=== PATIENT | male | born 1950 | race Caucasian/White ===

== ENCOUNTER 2021-10-25 11:05 | Observation (INO) | payer OTHER, SELFPAY ==
[2021-10-25] VITALS (37 sets, daily range): BP systolic 114–144; BP diastolic 50–86; PULSE 66–92; RESP 12–30; TEMP 36.1–36.9; O2SAT 97–100; BMI 23.8
--- NOTE | ~2021-10-25 | MR_ITS ---
EXAMINATION: MR brain/brain stem wo con DATE: 10/26/2021 09:58 INDICATION: Altered mental status. TECHNIQUE: Magnetic resonance imaging (MRI) of the brain and brainstem was performed without intraven ous contrast. COMPARISON: Head CT 10/25/2021 FINDINGS: There is a 10 mm lesion of increased T2-weighted signal intensity in the right cerebellar w figueroa matter. There is no acute ischemic infarct or abnormal mass lesion. The ventricles are normal in size. There is mucosal thickening in the paranasal sinuses. The orbits are normal. The mastoid air c ells are normal. IMPRESSION: 1. Lesion in the right cerebellar white matter, most likely mild chronic small vessel ischemic diseas e. Reviewed, dictated and finalized at location A. IMPRESSION: 1. Lesion in the right cerebellar white matter, most likely mild chronic small vessel ischemic disease.
--- NOTE | ~2021-10-25 | XR_ITS ---
EXAMINATION: XR chest 2V DATE: 10/25/2021 12:57 INDICATION: Dizziness, confusion and weakness TECHNIQUE: PA and lateral views of the chest were obtained. COMPARISON: None FINDINGS: The lungs are clear with no focal airspace opacities, pulmonary edema, pleural effusion or pneumothor ax. The cardiomediastinal silhouette is normal. Mild thoracic spondylosis. IMPRESSION: 1. No acute cardiopulmonary disease. Reviewed, dictated and finalized at location A.
--- NOTE | ~2021-10-25 | CT_ITS ---
EXAMINATION: CTA BRAIN/CAROTID DATE: 10/25/2021 12:51 INDICATION: Dizziness, confusion and disorientation TECHNIQUE: Computed tomographic angiography (CTA) of the head and neck was performed with 100 mL Omni paque-350 intravenous contrast. Multiplanar reconstructions and maximum intensity projection 3D-recon structions of the carotid arteries and of the intracranial arteries were created by the technologist on a separate workstation. Precontrast CT of the head was also obtained. Automated exposure control and iterative reconstruction technique were employed.The dose-length product was 1860.79 mGy-cm. COMPARISON: None. FINDINGS: Carotid arteries: There is no evident plaque with 0% stenosis of the right or left carotid bulbs relative to normal dis teodoro artery lumen diameter (NASCET criteria). Mild biapical pleural-parenchymal scarring. Thoracic aor ta is normal in caliber with no dissection. Cervical soft tissues are unremarkable. Severe lower cerv ical spondylosis. Head: No acute intracranial hemorrhage, acute infarction or abnormal extra axial fluid collection. Ventricl es are normal and symmetric. No mass/mass effect. No abnormally enhancing brain lesions. Mucosal thic kening in the bilateral ethmoid and maxillary sinuses. The orbits and mastoid air cells are normal. Intracranial arteries There is no hemodynamically significant stenosis in the vertebral, basilar and internal carotid arter ies. Vertebral arteries are codominant. There are no aneurysms identified. Both A1 and P1 segments a re patent. Also appear to be patent bilateral posterior communicating arteries. Cerebral arterial arb orization appears symmetric. IMPRESSION: 1. 0% stenosis of the left and right carotid bulbs relative to normal distal artery lumen diameter (N ASCET criteria). 2. No acute intracranial process. Unremarkable cerebral CT angiogram. Reviewed, dictated and finalized at location A. IMPRESSION: 1. 0% stenosis of the left and right carotid bulbs relative to normal distal ar kwame lumen diameter (NASCET criteria). 2. No acute intracranial process. Unremarkable cerebral CT angiogram.
--- NOTE | 2021-10-25 11:14 | ECG_ITS ---
Measurements Intervals [place] Rate: 70 P: 60 MO: 166 QRS: -36 QRSD: 90 T: 35 QT: 379 QTc: 410 Interpretive Statements SINUS RHYTHM MARKED LEFT AXIS DEVIATION [QRS AXIS < -30] NO PREVIOUS ECG AVAILABLE FOR COMPARISON Electronically Signed On 10-26-2021 16:03:59 CDT by Andres Lang M.D.
[2021-10-25 11:27] LABS: Basophils Percent Auto 0.2 % (0.2-1.2); Eosinophils Absolute Auto 0.1 K/mm3 (0-0.3); Eosinophils Percent Auto 1.7 % (0-4.4); Hematocrit 40.4 % (42.0-52.0); Hemoglobin 13.3 g/dL (14.0-18.0); Immature Granulocyte Absolute 0.02 K/mm3 (0.00-0.031); Immature Granulocyte Percent A 0.2 % (0-0.5); Lymphocytes Absolute Auto 1.51 K/mm3 (0.9-3.2); Lymphocytes Percent Auto 18.6 % (18.3-44.2); Mean Corpuscular HGB Conc 32.9 g/dl (32-36); Mean Corpuscular Volume 97.3 fl (80-100); Mean Platelet Volume 9.7 fl (7.4-10.4); Monocytes Absolute Auto 0.9 K/mm3 (0.1-0.6); Monocytes Percent Auto 10.8 % (2.6-8.5); Neutrophils Absolute Auto 5.6 K/mm3 (1.3-6.7); Neutrophils Percent Auto 68.5 % (45.5-73.1); Platelet Count Result 207 k/mm3 (150-375); Red Blood Count 4.15 M/mm3 (4.6-6.20); Red Cell Distribution Width 14.3 % (11.5-14.5); White Blood Count 8.1 K/mm3 (4.5-10.0)
[2021-10-25 11:37] LABS: Partial Thromboplastin Time 26.3 SECONDS (22.3-36.8); Prothrombin Time 12.7 Seconds (11.1-14.7)
--- NOTE | 2021-10-25 11:55 | ED.DIZZY ---
HPI - Dizziness General Chief Complaint: Dizziness <Nasreen Thomas PA-C - Last Filed: 10/25/21 18:59> Stated Complaint: dizzy since yesterday <Nasreen Thomas PA-C - Last Filed: 10/25/21 18:59> Time Seen by Provider: 10/25/21 11:53 <Nasreen Thomas PA-C - Last Filed: 10/25/21 18:59> Source: patient <Nasreen Thomas PA-C - Last Filed: 10/25/21 18:59> Mode of arrival: ambulatory <YAO Carey Last Filed: 10/25/21 18:59> Limitations: no limitations <Nasreen Thomas PA-C - Last Filed: 10/25/21 18:59> History of Present Illness HPI Narrative: Patient is a 70-year-old male who presents the ED with report of dizziness. Patient reports he developed dizziness yesterday, which he describes as feeling lightheaded and off-balance. Denies any aggravating or relieving factors to his dizziness. He denies any room spinning sensation. He worked out yesterday and did feel dizzy at that time but was able to finish his work-out. He then drove [place] with his family but did report feeling dizzy. at bedside states he seems disoriented at times and has been saying confused things, like thinking it was Easter Tuesday today. He has also needed to hold onto her while walking as he feels off balance, which is new for him. Patient states he just feels out of it and extremely fatigued. He also reports having a new tremor of his BUE, though states he has had a tremor for a while. States he has been eating and drinking well at home. He denies any headache, dysphagia, dysarthria, or feeling confused himself. He has had recent visual changes including depth perception issues. 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 He saw his eye doctor last week and is scheduled to have a follow-up testing on of this week. Patient denies any syncope, chest pain, shortness of breath, nausea, vomiting, abdominal pain, fever, chills, urinary symptoms. <Nasreen Thomas PA-C - Last Filed: 10/25/21 18:59> Related Data Home Medications: Home Medications Medication Instructions Recorded Confirmed esomeprazole magnesium [Nexium] 20 mg PO DAILY 10/25/21 10/25/21 <Nasreen Thomas PA-C - Last Filed: 10/25/21 18:59> Allergies/Adverse Reactions: Allergies Allergy/AdvReac Type Severity Reaction Status Date / Time No Known Allergies Allergy Verified 10/25/21 18:19 <Nasreen Thomas PA-C - Last Filed: 10/25/21 18:59> Review of Systems Review of Systems: CONSTITUTIONAL: Reports fatigue. Denies fever, chills, or sweats. EYES: Reports blurry vision/depth perception issues/difficulty focusing. Denies redness or discharge. ENT: Denies dysphagia, rhinorrhea, congestion. CARDIOVASCULAR: Denies chest pain. RESPIRATORY: Denies dyspnea. GASTROINTESTINAL: Denies abdominal pain, nausea, vomiting, or diarrhea. GENITOURINARY: Denies dysuria or hematuria. MUSCULOSKELETAL: Denies back pain. NEUROLOGIC: Reports tremor, dizziness/lightheadedness, tremor, disorientation. Denies syncope, headache, numbness, tingling, dysarthria, or focal weakness. <Nasreen Thomas PA-C - Last Filed: 10/25/21 18:59> All systems reviewed & are unremarkable except as noted in HPI and below <Nasreen Thomas PA-C - Last Filed: 10/25/21 18:59> [facility] Past Medical History Medical History: Medical History (Updated 10/25/21 @ 18:54 by Nasreen Thomas PA-C) GERD (gastroesophageal reflux disease) <Nasreen Thomas PA-C - Last Filed: 10/25/21 18:59> Surgical History Surgical History: Surgical History (Updated 10/25/21 @ 18:47 by Nasreen Thomas PA-C) History of surgery on lower extremity <Nasreen Thomas PA-C - Last Filed: 10/25/21 18:59> Family History Family History: Family History (Updated 10/25/21 @ 18:23 by Isacc Marroquin RN) Father Alzheimer disease <Nasreen Thomas PA-C - Last Filed: 10/25/21 18:59> Social History Social History:
[2021-10-25 12:11] LABS: Alanine Aminotransferase 22 U/L (4-50); Alkaline Phosphatase 70 U/L (38-126); Anion Gap 3 mmol/L (8-16); Aspartate Amino Transferase 30 U/L (17-59); Bilirubin,Total 1.3 mg/dL (0.2-1.3); Blood Urea Nitrogen 14 mg/dL (9-20); Calcium 8.5 mg/dL (8.4-10.2); Carbon Dioxide 28 mmol/L (22-30); Chloride 106 mmol/L (98-107); Estimated CRCL calculation 69 ml/min; Estimated Glomerular Filt Rate > 60; Glucose 110 mg/dL (65-110); Potassium 4.1 mmol/L (3.4-5.0); Sodium 137 mmol/L (137-145)
[2021-10-25 12:43] LABS: Add Urine Microscopic? NO; Appearance Urine Clear (Clear); Bilirubin Urine Negative (Negative); Blood Urine Negative (Negative); Color Urine Straw (Yellow); Glucose Urine UA Negative (Negative); Ketones Urine Negative (Negative); Leukocyte Esterase Ur Negative LEU/UL (Negative); Nitrate Urine Negative (Negative); Protein Urine Negative (Negative); Specific Grav Ur 1.012 (1.001-1.035); Urobilinogen Urine Negative mg/dL (<2.0)
[2021-10-25] MEDS: MECLIZINE HCL 25 MG TABLET PO (13:08)
[2021-10-25] MEDS: SODIUM CHLORIDE 0.9% IV 1,000 ML 999 ML IV CONT (14:40)
--- NOTE | 2021-10-25 14:41 | PC.NURSE ---
food tray ordered
[2021-10-25 15:11] LABS: NT Pro B Type Natriuretic Pept 199 pg/mL (5-100); Troponin I < 0.012 ng/mL (0.000-0.034)
[2021-10-25 16:42] LABS: Amphetamine Screen Urine Negative (Negative); Barbiturate Screen Urine Negative (Negative); Benzodiazepines Screen Urine Negative (Negative); Cannabinoid Screen Urine Negative (Negative); Cocaine Screen Urine Negative (Negative); Methadone Screen Urine Negative (Negative); Opiate Screen Urine Negative (Negative); Phencyclidine Screen Urine Negative (Negative)
--- NOTE | 2021-10-25 17:23 | PM.IMHP ---
H&P: HPI History of Present Illness Date/Time: Patient was placed observation status for expected length of stay less than 23 hours for management, will plan to re-evaluate tomorrow for improvement. 10/25/21 17:23 Chief Complaint: Blurred vision Narrative: Mr. Phan is a 70-year-old gentleman who presented emergency room with complaints of blurring of his vision and fatigued over the last 1-2 weeks. Initially patient had told the emergency room provider that he was dizzy, but now he states he does not feel dizzy he feels more like he has having blurring of vision. 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 Patient states he was in 12 his retinas were within normal limits that he would need to be evaluated for cataracts. Patient states he has also been extremely fatigued and feeling off balanced. Patient states that he has had a hole into things and walking at times. Patient states that he will be doing doing daily activities around his house and will just fall asleep. Patient has a known history of snoring and states that he has had different devices to try to stop him from snoring, but they have not worked. Patient denies talking to his primary care provider about any of these issues and states he has never been worked up for sleep apnea. Patient denies any chest pain, shortness a breath, syncope, or near syncopal episodes. Patient's spouse is at bedside states that patient has been very forgetful recently and not acting himself. Patient's spouse states that he she has also noted that he has new tremors to bilateral upper extremities that have developed over the last few weeks. Patient states his only real medical history is gastroesophageal reflux disease. Review of Systems Review of Systems: A 12 point review of systems was completed patient all pertinent positive and negative per HPI the remainder are unremarkable. [facility] Past Medical History Medical History (Updated 10/25/21 @ 17:31 by Angelia Wiggins APRN) GERD (gastroesophageal reflux disease) Social History Social History (Updated 10/25/21 @ 17:29 by Angelia Wiggins APRN) Smoking status: Never smoker Meds Home Medications and Allergies Home Medications Medication Instructions Recorded Confirmed Type esomeprazole magnesium [Nexium] 20 mg PO DAILY 10/25/21 History Allergies Allergy/AdvReac Type Severity Reaction Status Date / Time No Known Allergies Allergy Verified 10/25/21 11:12 Vital Signs Vital Signs - 24 hr 10/25/21 11:09 10/25/21 11:12 10/25/21 11:30 Temperature 36.1 C L Pulse Rate 77 67 77 Respiratory Rate 16 18 17 Blood Pressure 142/75 H Pulse Oximetry 99 98 100 10/25/21 11:31 10/25/21 12:11 10/25/21 12:20 Temperature Pulse Rate 77 85 82 Respiratory Rate 24 H 21 H 21 H Blood Pressure 138/80 Pulse Oximetry 100 100 10/25/21 12:30 10/25/21 12:31 10/25/21 12:54 Temperature Pulse Rate 79 78 86 Respiratory Rate 19 20 Blood Pressure 130/56 L Pulse Oximetry 97 10/25/21 12:56 10/25/21 13:00 10/25/21 13:01 Temperature Pulse Rate 83 77 90 Respiratory Rate 18 17 24 H Blood Pressure 135/79 144/76 H Pulse Oximetry 99 99 98 10/25/21 13:02 10/25/21 13:18 10/25/21 13:30 Temperature Pulse Rate 77 82 Respiratory Rate 12 18 20 Blood Pressure Pulse Oximetry 97 98 10/25/21 13:31 10/25/21 13:49 10/25/21 14:05 Temperature Pulse Rate 76 66 87 Respiratory Rate 23 H 14 20 Blood Pressure 131/58 L Pulse Oximetry 98 10/25/21 14:15 10/25/21 14:16 10/25/21 14:30 Temperature Pulse Rate 78 77 82 Respiratory Rate 21 H 19 18 Blood Pressure 120/69 135/86 Pulse Oximetry 10/25/21 14:32 10/25/21 14:45 10/25/21 14:46 Temperature Pulse Rate 81 81 85 Respiratory Rate 21 H 20 26 H Blood Pr
[2021-10-26] VITALS: PULSE 69
[2021-10-26 04:00] VITALS: PULSE 72
[2021-10-26 06:00] VITALS: BP 121/64; PULSE 61; RESP 16; TEMP 36.6; O2SAT 99
[2021-10-26 06:00] LABS: Basophils Percent Auto 0.4 % (0.2-1.2); Eosinophils Absolute Auto 0.2 K/mm3 (0-0.3); Hematocrit 37.7 % (42.0-52.0); Hemoglobin 12.8 g/dL (14.0-18.0); Immature Granulocyte Absolute 0.02 K/mm3 (0.00-0.031); Immature Granulocyte Percent A 0.3 % (0-0.5); Lymphocytes Absolute Auto 1.61 K/mm3 (0.9-3.2); Lymphocytes Percent Auto 22.8 % (18.3-44.2); Mean Corpuscular Hemoglobin 32.4 pg (26-34); Mean Corpuscular Volume 95.4 fl (80-100); Monocytes Percent Auto 13.6 % (2.6-8.5); Neutrophils Absolute Auto 4.2 K/mm3 (1.3-6.7); Neutrophils Percent Auto 59.9 % (45.5-73.1); Platelet Count Result 209 k/mm3 (150-375); Red Blood Count 3.95 M/mm3 (4.6-6.20); Red Cell Distribution Width 14.1 % (11.5-14.5); White Blood Count 7.1 K/mm3 (4.5-10.0)
[2021-10-26 06:08] LABS: Anion Gap 4 mmol/L (8-16); Blood Urea Nitrogen 13 mg/dL (9-20); Calcium 8.1 mg/dL (8.4-10.2); Carbon Dioxide 27 mmol/L (22-30); Chloride 108 mmol/L (98-107); Estimated CRCL calculation 69 ml/min; Estimated Glomerular Filt Rate > 60; Glucose 103 mg/dL (65-110); Magnesium 2.2 mg/dL (1.6-2.3); Potassium 3.9 mmol/L (3.4-5.0); Sodium 139 mmol/L (137-145)
[2021-10-26 08:00] VITALS: PULSE 68
[2021-10-26] MEDS: PANTOPRAZOLE 40 MG TABLET PO (08:59)
--- NOTE | 2021-10-26 10:06 | WPDNEURCNPN ---
Assessment and Plan Additional Plan posterior circulation dysfunction raising the possibility of TIA, stroke or else to further evaluation as documented Consult date: 10/26/21 HPI: Rudi Phan is a 70 year old male Admitted to the hospital for the complaints of dizziness of [id number] duration described as lightheadedness and being off balance without associated aggravating factor, spinning sensation, he managed to work yesterday , was able to finish the work of the day then he drove to [place] play with his family and became dizzy and as per his became disoriented and somewhat confused he had to hold on to her ,while walking as he was off balance, he also noted the tremor in his both hands but his mention that he has tremor for long duration, he gave no history of being dysarthric, dysphasic recently he has had depth perception, visual difficulties, 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 His medications included only Nexium 20 mg daily, no drug allergies, history of GERD, drinking only 3 times per week no smoking initial evaluation revealed normal vital signs normal routine lab except BNP of 199, negative CT of the head and neck negative x-ray of the chest normal EKG Review of Systems Review of Systems: All systems reviewed & are unremarkable except as noted in HPI and below PMFSH Past Medical History Medical History GERD (gastroesophageal reflux disease) Surgical History Surgical History History of surgery on lower extremity Family History Family History Father Alzheimer disease Social History Social History Smoking status: Never smoker Second hand tobacco smoke exposure: No Alcohol intake: current Drinks per week: 3 Substance use: never Substance use type: does not use Spiritual care concerns: No Meds Home Medications and Allergies Home Medications Medication Instructions Recorded Confirmed Type esomeprazole magnesium [Nexium] 20 mg PO DAILY 10/25/21 10/25/21 History Allergies Allergy/AdvReac Type Severity Reaction Status Date / Time No Known Allergies Allergy Verified 10/25/21 18:19 Vital Signs Vital Signs - 24 hr 10/25/21 11:09 10/25/21 11:12 10/25/21 11:30 Temperature 36.1 C L Pulse Rate 77 67 77 Respiratory Rate 16 18 17 Blood Pressure 142/75 H Pulse Oximetry 99 98 100 10/25/21 11:31 10/25/21 12:11 10/25/21 12:20 Temperature Pulse Rate 77 85 82 Respiratory Rate 24 H 21 H 21 H Blood Pressure 138/80 Pulse Oximetry 100 100 10/25/21 12:30 10/25/21 12:31 10/25/21 12:54 Temperature Pulse Rate 79 78 86 Respiratory Rate 19 20 Blood Pressure 130/56 L Pulse Oximetry 97 10/25/21 12:56 10/25/21 13:00 10/25/21 13:01 Temperature Pulse Rate 83 77 90 Respiratory Rate 18 17 24 H Blood Pressure 135/79 144/76 H Pulse Oximetry 99 99 98 10/25/21 13:02 10/25/21 13:18 10/25/21 13:30 Temperature Pulse Rate 77 82 Respiratory Rate 12 18 20 Blood Pressure Pulse Oximetry 97 98 10/25/21 13:31 10/25/21 13:49 10/25/21 14:05 Temperature Pulse Rate 76 66 87 Respiratory Rate 23 H 14 20 Blood Pressure 131/58 L Pulse Oximetry 98 10/25/21 14:15 10/25/21 14:16 10/25/21 14:30 Temperature Pulse Rate 78 77 82 Respiratory Rate 21 H 19 18 Blood Pressure 120/69 135/86 Pulse Oximetry 10/25/21 14:32 10/25/21 14:45 10/25/21 14:46 Temperature Pulse Rate 81 81 85 Respiratory Rate 21 H 20 26 H Blood Pressure 135/86 132/71 132/71 Pulse Oximetry 10/25/21 14:47 10/25/21 15:00 10/25/21 15:17 Temperature Pulse Rate 70 89 81 Respiratory Rate 20 28 H 18 Blood Pressure 125/77 Pulse Oximetry 97 10/25/21 15:30 10/25/21 15:45 10/25/21 16:00 [place]
[2021-10-26 14:00] VITALS: BP 123/62; PULSE 63; RESP 18; TEMP 35.9; O2SAT 100
--- NOTE | 2021-10-26 15:27 | PM.DS ---
DS: Admitting Diagnosis Discharge Date 10/26/2021 Admitting Diagnosis Visual change DS: Discharge Diagnosis Discharge Diagnosis (1) Blurred vision: Code(s): H53.8 - Other visual disturbances Status: Acute Assessment and Plan: Patient presented with concerns for vague neurologic complaints, chief concern being ?foggy? vision. Patient states he sees the same with his glasses on and off. He has been evaluated by his dental secretary and has been referred to a retina specialist for evaluation. He has an appointment scheduled on 10/29/2021. If retinal evaluation is negative, he will be referred for cataract evaluation. Denied double vision, tunnel vision (2) Dizziness: Code(s): R42 - Dizziness and giddiness Status: Acute Assessment and Plan: Initial report of complaints of dizziness on presentation, however denied complaints of dizziness to myself for admitting provider. Patient states he has never been dizzy. His noticed some instability and shakiness. Head/neck CTA was unremarkable for acute intracranial process and showed no stenosis of the bilateral carotid bulbs. Orthostatic vital signs negative. Patient was asymptomatic at my evaluation with no neurologic deficits. He was able to ambulate independently. (3) Cerebellar lesion: Code(s): G93.9 - Disorder of brain, unspecified Status: Acute Assessment and Plan: Brain MRI showed lesion of the right cerebellar white matter, most likely mild chronic small-vessel ischemic disease. No evidence of infarct or abnormal mass lesion. He was seen in consultation by Neurology during admission. He will follow-up with neurologist, Dr. Valdivia as an outpatient and have repeat MRI in 4 weeks to ensure no progression of the lesion. Per neurology recommendations, he was initiated on aspirin 81 mg daily. He will have outpatient echocardiogram with bubble study completed with results to PCP (4) Fatigue: Code(s): R53.83 - Other fatigue Status: Acute Assessment and Plan: Patient and both noted increased fatigue. They are concerned this is due to sleep apnea. He will follow-up with PCP promptly to obtain outpatient sleep study. TSH was within normal limits. DS: Summary Hospital Course Hospital Course: Date of admission: 10/25/2021 Date of discharge: 10/26/2021 Rudi Phan is a healthy 70-year-old male with a history of GERD who presented to the emergency department on 10/25/2021 with complaints of dizziness and blurred vision. On presentation to the ED, he was noted to be tremulous, vital signs were stable, laboratory workup unremarkable, head/neck CTA showed no acute intracranial findings. He was admitted to the hospitalist service and seen in consultation by Neurology. Please see above for further details. Patient was back to his usual state of health. He will follow up outpatient for evaluation of his blurred vision. You also follow-up with Neurology and have repeat MRI for further monitoring. He was very eager for discharge home. I discussed with both the patient and his worrisome signs and symptoms for which to return and educated on his medications. Given his overall improvement, he was determined to no longer require inpatient care and was discharged in hemodynamically stable condition on 10/26/2021. Status at Discharge Functional status at discharge: independent ambulation Overall status at discharge: patient is back to baseline Time Spent with Patient Time attestation: Total time spent providing and/or coordinating discharge services: 40 minutes Time spent: Greater than 30 minutes Exam Narrative: General: Well-nourished, well-appearing 70 year-old male, sitting up in bed, comfortable, NARD Neuro: awake, alert and oriented x4, speech clear, CN II-XII intact, strength 5/5 throughout, sensation intact, no pronator drift, bilateral treating engineer strength equal, able to perform rapid alternatin
== END 2021-10-26 15:57 | disposition home or self-care (01) ==
LOC: ANHED 16:17 → ANH3MED 16:21
PROVIDERS: Nurse Practitioner Adult Health; Physician Assistant; Admitting Provider Internal Medicine; Emergency Provider Emergency Medicine; Visit Provider Physician Assistant
DX: R42 Dizziness and giddiness (principal); H53.8 Other visual disturbances; R53.83 Other fatigue; K21.9 Gastro-esophageal reflux disease without esophagitis
CPT/HCPCS: 36415; 70496; 70498; 70551; 71046; 80048; 80053; 80307; 81003; 83735; 83880; 84443; 84484; 85025; 85610; 85730; 93005; 96360; 97161; 97165; 99285; A9270; G0378; J7030; Q9967

== ENCOUNTER 2021-11-03 14:33 | Outpatient (CLI) | payer OTHER, SELFPAY ==
--- NOTE | 2021-11-03 14:45 | ECHO_ITS ---
Patient Info Name: Rudi Phan Age: 71 years : 1950 Gender: Male Ht: 69 in Wt: 162 lbs BSA: 1.90 m2 HR: 76 bpm BP: 137 / 78 mmHg Heart Rhythm: Sinus Rhythm Technical Quality: Fair Exam Date: 11/03/2021 2:52 PM Exam Location: [facility] Patient Status: Outpatient Admit Date: 11/03/2021 Staff Ordering Physician: Vannesa Rodriguez PA-C Manager Assessment: Sendy Kruger RDCS Attending Provider: Vannesa Rodriguez PA-C Referring Physician: Michael MA; Exam Type: CA echo doppler w bubble study Study Info Indications - Abnormal finding on diagnostic imaging of other... Complete two-dimensional, color flow and Doppler transthoracic echocardiogram is performed with agitated saline. Contrast/Agitated Saline Contrast/Ag. Saline: Agitated Saline Amount: 20.00 ml New IV Access: Left Summary 1. Left ventricular chamber dimension is normal. 2. Left ventricular systolic function is normal, estimated at 60-65%. 3. There is mildly increased left ventricular wall thickness. 4. The left ventricular diastolic function is grade I diastolic dysfunction. 5. Left atrial chamber dimension is mildly enlarged. 6. Intact interatrial septum visualized by color flow and agitated saline imaging. 7. There is mild aortic valve regurgitation. 8. There is mild mitral valve regurgitation. 9. There is mild tricuspid valve regurgitation. 10. Moderate pulmonary hypertension, estimated pulmonary arterial systolic pressure is 47 mmHg. Left Ventricle Left ventricular chamber dimension is normal. Left ventricular systolic function is normal, estimated at 60-65%. There is mildly increased left ventricular wall thickness. The left ventricular diastolic function is grade I diastolic dysfunction. Right Ventricle Right ventricular chamber dimension is normal. Right ventricular systolic function is normal. Left Atria Left atrial chamber dimension is mildly enlarged. Right Atria Right atrial chamber dimension is normal. Atrial Septum Intact interatrial septum visualized by color flow and agitated saline imaging. Aortic Valve The aortic valve is trileaflet. There is mild aortic valve sclerosis. There is no aortic valve stenosis. There is mild aortic valve regurgitation. Pulmonic Valve The pulmonic valve is normal. There is no pulmonic valve stenosis. There is trace pulmonic regurgitation. Mitral Valve The mitral valve has thickened leaflets. There is no mitral valve stenosis. There is mild mitral valve regurgitation. Tricuspid Valve The tricuspid valve leaflets are normal. There is no significant tricuspid valve stenosis. There is mild tricuspid valve regurgitation. Moderate pulmonary hypertension, estimated pulmonary arterial systolic pressure is 47 mmHg. Pericardium/Pleural The pericardium appears normal. There is trivial pericardial effusion. Inferior Vena Cava Normal inferior vena cava with >50% collapse upon inspiration consistent with normal right atrial pressure, 10 mmHg. Aorta The aortic root size at the sinus of Valsalva is normal. The prox ascending aorta size is normal. Left Ventricular Outflow Tract Name Value Normal LVOT 2D
== END 2021-11-03 14:34 | disposition home or self-care (01) ==
LOC: ANHCARD 14:37
PROVIDERS: Visit Provider Physician Assistant
DX: R93.89 Abnormal findings on diagnostic imaging of other specified body structures (principal); I35.1 Nonrheumatic aortic (valve) insufficiency; I34.0 Nonrheumatic mitral (valve) insufficiency; I36.1 Nonrheumatic tricuspid (valve) insufficiency; I27.20 Pulmonary hypertension, unspecified
CPT/HCPCS: 93306; 96375

== ENCOUNTER 2021-11-06 07:22 | Outpatient (CLI) | payer OTHER, SELFPAY ==
--- NOTE | 2021-11-09 12:08 | WPDSLEEPSTUD ---
Sleep Study Date of Study: 11/06/21 Ordering Provider: Alexandre Lieberman Interpreting Physician: Sowmya Washington MD Sleep Study Type: Split Polysomnogram Height: 1.75 m Weight: 72.575 kg Body Mass Index: 23.6 Neck Circumference (inches): 15.5 [place]: 9 Reason for Sleep Study Loud snoring; recent stroke; he is now using an BRITTANY, a mandibular advancement device * echo 11/03/2021 with normal EF 60-65%, elevated RVSP 47 mmHg Sleep History Rudi Phan is a 71-year-old man who has a difficult time initiating and maintaining sleep. He was recently discharged from a hospital on November 03 after a small stroke, felt better, went home and went back to work but then deteriorated and call 911. His tells him that he snores. He believes that he has sleep apnea. He made his own snore guard to treat himself. HE is now using an BRITTANY, elastic mandibular advancement appliance from his dentist. He has had problems for 4-5 years. he occasionally awakens from sleep feeling short of breath. He rarely awakens at night with heartburn, belching or coughing. He occasionally has trouble sleeping with a cold. He rarely gasps for breath at night. He constantly has breathing problems at night by his . He frequently sweats a the the night. He does not notice his heart pounding or be here regularly night. Falls asleep during the day, occasionally falls asleep involuntarily but never falls asleep while driving. He does not have loss of muscle tone with strong emotion. He does not have daytime difficulties due to excessive sleepiness. He does not feel paralyzed on waking or falling asleep. He rarely has vivid dreamlike scenes upon awakening or falling asleep. He does not feel afraid to go to sleep. He denies having nightmares. He occasionally remembers his dreams. He occasionally has racing thoughts when he feels stressed. He rarely feels sad or depressed. He rarely has anxiety. He rarely has muscular tension and rarely notices parts of his body jerking. He does not kick at night. He does not have crawling or aching feelings in his legs. He occasionally has leg cramps at night. He does not have morning jaw pain. He occasionally grinds his teeth during sleep. He is not bothered by pain during the day. He rarely is awakened by leg cramping at night. He occasionally wakes up feeling stiff in the morning. He rarely wakes up with sore achy muscles. He occasionally wakes up with pain in the neck which is related to his work. He takes antacids regularly for his GERD. Normal bedtime is 10:00 p.m. falling asleep within 5-10 minutes, typically waking 2-3 times during the night to go to the bathroom. He is able to return to sleep quickly. He wakes up at 5:45 a.m. on weekdays. On weekends, his bedtime is 11:00 p.m. and he wakes at 6 in the morning. He takes naps in the afternoon or evenings on occasion. A short nap of 10 or 15 minutes may be refreshing. He usually awakens feeling refreshed. He occasionally has daytime sleepiness. He rarely has memory or concentration problems. He never has morning headaches. Habits: Never smoked tobacco. Caffeine 1 and half cups of coffee a day. Alcohol 2-3 per week. [facility] Past Medical History Medical History (Updated 11/09/21 @ 12:54 by Sowmya Washington MD) GERD (gastroesophageal reflux disease) History of kidney stones Mixed hyperlipidemia Stroke Surgical History Surgical History History of surgery on lower extremity Family History Family History Father Alzheimer disease Social History Social History Smoking status: Never smoker Second hand tobacco smoke exposure: No Alcohol intake: current Drinks per week: 3 Substance use: never Substance use type: does not use Spiritual care concerns: No Medications Home Medi
[2021-11-09 12:56] VITALS: BMI 23.6
== END 2021-11-07 06:51 | disposition home or self-care (01) ==
LOC: ANHCSM 07:23
DX: G47.09 Other insomnia (principal); G47.30 Sleep apnea, unspecified; G47.33 Obstructive sleep apnea (adult) (pediatric)
CPT/HCPCS: 95810; 95811

== ENCOUNTER 2023-02-25 06:37 | Outpatient (RCR) | payer OTHER, SELFPAY ==
--- NOTE | 2023-02-11 11:17 | PC.NURSE ---
ORDERED BY HEALTH DEPARTMENT AFTER POSSIBLE BAT EXPOSURE WHILE ON VACATION IN [facility]. TO RETURN ON 02/14/2023 FOR NEXT VACCINE - VOICES UNDERSTANDING.
== END 2023-05-12 23:59 | disposition home or self-care (01) ==
LOC: ANHVASCINF 06:37
PROVIDERS: Visit Provider Pediatrics
DX: Z29.14 Encounter for prophylactic rabies immune globulin (principal); Z20.3 Contact with and (suspected) exposure to rabies
CPT/HCPCS: 90471; 90472; 90675; 90375